=== PATIENT | female | born 1940 | race Caucasian/White ===

== ENCOUNTER 2020-04-15 13:10 | Outpatient (REF) | payer MEDICARE, SELFPAY ==
--- NOTE | ~2020-04-15 | MM_ITS ---
EXAMINATION: MM SCREENING DIGITAL BREAST TOMOSYNTHESIS, BILATERAL CLINICAL INFORMATION: Screening. Asymptomatic. The lifetime risk of breast cancer based on the Tyrer-Cuzick Model is 3%. COMPARISON: Mammography: 04/10/2019, 03/11/2018, 02/25/2017, 02/16/2016, 01/15/2015 TECHNIQUE: Digital breast tomosynthesis is performed in both the craniocaudal and mediolateral oblique views along with computer-aided detection (CAD). Synthesized 2D images are generated from the tomosynthesis. FINDINGS: There are scattered areas of fibroglandular density (ACR BI-RADS breast composition Category b). There is parenchymal asymmetry mid central upper inner left breast, more conspicuous when compared with recent studies but similar to remote mammography and likely related to shifting fibroglandular tissue. Patient will be recalled for additional imaging. The right breast is unremarkable. There is no developing density or interval mass or architectural abnormality. Neither breast shows abnormal calcifications. The axilla and skin contours are unremarkable. MM/MM tomosynthesis screening BI IMPRESSION: 1. Left: Parenchymal asymmetry central upper outer mid breast likely shifting fibroglandular tissue. 2. Right: No mammographic evidence of malignancy. ASSESSMENT: BI-RADS 0: Incomplete - Need Additional Imaging Evaluation RECOMMENDATION: 1. Additional views of the left breast (3-D rolled CC x2, 3-D ML). 2. Targeted ultrasound if warranted after review of the additional views. 3. Radiology department staff will contact the patient for additional imaging. This patient's information was entered into a reminder system with a target due date for their next mammogram.
== END 2020-04-15 13:11 | disposition home or self-care (01) ==
LOC: HO.MAMMO 13:10
PROVIDERS: PCP Internal Medicine; Visit Provider Internal Medicine
DX: Z12.31 Encounter for screening mammogram for malignant neoplasm of breast (principal)
CPT/HCPCS: 77063; 77067

== ENCOUNTER 2020-05-01 10:04 | Outpatient (REF) | payer MEDICARE, SELFPAY ==
--- NOTE | ~2020-05-01 | MM_ITS ---
EXAMINATION: MM DIAGNOSTIC DIGITAL BREAST TOMOSYNTHESIS, LEFT Targeted left breast ultrasound. CLINICAL INFORMATION: Left breast asymmetric density superiorly COMPARISON: Mammography: April 15, 2020 and studies dating back to October 11, 2008 TECHNIQUE: Digital breast tomosynthesis is performed. 2D images are generated from the tomosynthesis. The following views are obtained: Rolled craniocaudal views, 90 degree mediolateral view, and spot compression 90 degree mediolateral view. Targeted left breast ultrasound. FINDINGS: There are scattered areas of fibroglandular density (ACR BI-RADS breast composition Category b). Additional views still demonstrate some dense breast parenchyma which does not totally efface but which has the appearance of the studies dating back to October 13, 2009. No underlying spiculated mass is appreciated. Targeted ultrasound of the superior aspect of the breast did not demonstrate any abnormal cystic or solid masses. No regions of abnormal distal sound shadowing appreciated. Results are discussed with the patient at time of visit. MM/MM tomosynthesis added views L IMPRESSION: No specific mammographic or ultrasound findings to suggest malignancy of the left breast. ASSESSMENT: BI-RADS 1: Negative RECOMMENDATION: Routine annual mammography screening due in 12 months. This patient's information was entered into a reminder system with a target due date for their next mammogram.
--- NOTE | ~2020-05-01 | US_ITS ---
EXAMINATION: US DIAGNOSTIC ULTRASOUND BREAST, LEFT CLINICAL INFORMATION: Left breast asymmetry superiorly. COMPARISON: Mammography of same day as well as studies dating back to October 11, 2008. TECHNIQUE: Ultrasound of the breast is performed with real-time workman scale imaging and color Doppler. FINDINGS: Targeted ultrasound of the superior aspect of the breast did not demonstrate any abnormal cystic or solid masses. No regions of abnormal distal sound shadowing appreciated. Results are discussed with the patient at time of visit. US/US breast LT limited IMPRESSION: No specific mammographic or ultrasound findings to suggest malignancy of the left breast. ASSESSMENT: BI-RADS 1: Negative RECOMMENDATION: Routine annual mammography screening due in 12 months.
== END 2020-05-01 10:05 | disposition home or self-care (01) ==
LOC: HO.MAMMO 10:04
PROVIDERS: PCP Internal Medicine; Visit Provider Internal Medicine
DX: R92.8 Other abnormal and inconclusive findings on diagnostic imaging of breast (principal)
CPT/HCPCS: 76642; 77061; 77065

== ENCOUNTER 2021-04-17 11:26 | Outpatient (REF) | payer MEDICARE, SELFPAY ==
--- NOTE | ~2021-04-17 | MM_ITS ---
EXAMINATION: MM SCREENING DIGITAL BREAST TOMOSYNTHESIS, BILATERAL CLINICAL INFORMATION: Screening. Asymptomatic. The lifetime risk of breast cancer based on the Tyrer-Cuzick Model is 3%. COMPARISON: Mammography: 05/01/2020, 04/15/2020, 04/10/2019, 03/11/2018, 02/25/2017, targeted left breast ultrasound 05/01/2020. TECHNIQUE: Digital breast tomosynthesis is performed in both the craniocaudal and mediolateral oblique views along with computer-aided detection (CAD). Synthesized 2D images are generated from the tomosynthesis. Additional right CC view is provided. FINDINGS: There are scattered areas of fibroglandular density (ACR BI-RADS breast composition Category b). There are no significant masses, abnormal calcifications, or other abnormalities. Parenchymal pattern is similar to prior studies. There is no developing density or architectural abnormality. The axilla and skin contours are unremarkable. No significant changes. MM/MM tomosynthesis screening BI IMPRESSION: No mammographic evidence of malignancy. ASSESSMENT: BI-RADS 1: Negative RECOMMENDATION: Routine annual mammography screening. This patient's information was entered into a reminder system with a target due date for their next mammogram.
== END 2021-04-17 11:27 | disposition home or self-care (01) ==
LOC: HO.MAMMO 11:26
PROVIDERS: PCP Internal Medicine; Visit Provider Internal Medicine
DX: Z12.31 Encounter for screening mammogram for malignant neoplasm of breast (principal)
CPT/HCPCS: 77063; 77067

== ENCOUNTER 2022-04-23 11:36 | Outpatient (REF) | payer MEDICARE, SELFPAY ==
--- NOTE | ~2022-04-23 | MM_ITS ---
EXAMINATION: MM SCREENING DIGITAL BREAST TOMOSYNTHESIS, BILATERAL CLINICAL INFORMATION: Screening. Asymptomatic. The lifetime risk of breast cancer based on the Tyrer-Cuzick Model is 2%. COMPARISON: Multiple prior exams, most recent 04/17/2021. TECHNIQUE: Digital breast tomosynthesis is performed in both the craniocaudal and mediolateral oblique views along with computer-aided detection (CAD). Synthesized 2D images are generated from the tomosynthesis. FINDINGS: There are scattered areas of fibroglandular density (ACR BI-RADS breast composition Category b). There are no significant masses, abnormal calcifications, or other abnormalities. No architectural abnormality or developing density or significant change from prior studies. The axilla are unremarkable. MM/MM tomosynthesis screening BI IMPRESSION: No mammographic evidence of malignancy. ASSESSMENT: BI-RADS 1: Negative RECOMMENDATION: Routine annual mammography screening. This patient's information was entered into a reminder system with a target due date for their next mammogram.
== END 2022-04-23 11:37 | disposition home or self-care (01) ==
LOC: HO.MAMMO 11:36
PROVIDERS: PCP Internal Medicine; Visit Provider Internal Medicine
DX: Z12.31 Encounter for screening mammogram for malignant neoplasm of breast (principal)
CPT/HCPCS: 77063; 77067

== ENCOUNTER 2023-04-27 11:22 | Outpatient (REF) | payer MEDICARE, SELFPAY | END 2023-04-27 11:23 | disposition home or self-care (01) | LOC: HO.MAMMO 11:22 | PROVIDERS: PCP Internal Medicine; Visit Provider Internal Medicine | DX: Z12.31 Encounter for screening mammogram for malignant neoplasm of breast (principal) | CPT/HCPCS: 77063; 77067 ==

== ENCOUNTER → 2023-04-27 11:45 | Outpatient (BNV) | payer MEDICARE, SELFPAY | PROVIDERS: PCP Internal Medicine; Visit Provider Radiology Diagnostic Radiology | DX: Z12.31 Encounter for screening mammogram for malignant neoplasm of breast (principal) | CPT/HCPCS: 77063; 77067 ==

== ENCOUNTER 2024-05-02 10:37 | Outpatient (REF) | payer MEDICARE, SELFPAY ==
--- OUTSIDE RECORDS SUMMARY | 2024-05-02 12:37 | XMS_ITS | Patient Health Record ---
Author Organization [facility] Address [address] [place] [address] Care Team Providers Care Insurance Billing Specialist Name Role Phone Elizabeth Zuniga Unavailable [phone] Reason For Referral No Information Medications Medication SIG (Take, Route, Frequency, Duration) Notes Start Date End Date Status Pravastatin Sodium 20MG 1 ORAL daily for -3 Samuel-[facility]J 2012 Active Problems Problem Type SNOMED Code ICD Code Onset Dates Problem Status W/U Status Risk Notes Problem Hyperlipidemia (97670231) Other and unspecified hyperlipidemia (272.4) Active confirmed Major Problem Dysuria (93978586) Dysuria (788.1) Active confirmed Diag Problem Urgent desire to urinate (07516273) Urgency of urination (788.63) Active confirmed Diag Problem Gynecological examination normal (632745414383463) Routine gynecological examination (V72.31) Active confirmed Diag Plan Of Treatment No Information Insurance Providers Payer Name Payer Address Payer Phone Subscriber Number Group Number Insured Name Patient Relationship to Insured Coverage Start Date Coverage End Date [facility] [address] [place] [address] [phone] [id number] [place] Self - patient is the insured
--- OUTSIDE RECORDS SUMMARY | 2024-05-02 12:37 | XMS_ITS | Data Portability ---
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 Patient will follow up with us in 6-8 weeks in [facility] clinic, and two months after that. Patient had the opportunity had to ask questions, which were all answered to their satisfaction. 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 No strengthening until the 16 postop hans. Patient will follow up in two months. Patient had the opportunity had to ask questions, which were all answered to their satisfaction. 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 No strengthening until the 16 postop hans. Patient will follow up in 4 months. Patient had the opportunity had to ask questions, which were all answered to their satisfaction. Dr. Daily was in to reexamine and evaluate the patient agrees with the assessment and plan. Work Status: Fully disabled [email or web address] Not available 09/16/2020 17:23:56 01/20/2021 01/20/2021 Assessment: Status post right reverse total shoulder replacement on 05/22/2020 Plan: We have recommended continuation of physical therapy to work on active range of motion. No strengthening until the 16 postop hans. Patient will follow up in 4 months. Patient had the opportunity had to ask questions, which were all answered to their satisfaction. Dr. Daily was in to reexamine and evaluate the patient agrees with the assessment and plan. 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 She can now progress into activities as tolerated we will see her back on an as-needed basis. Patient had the opportunity had to ask questions, which were all answered to their satisfaction. Dr. Daily was in to reexamine and evaluate the patient agrees with the assessment and plan. Work Status: Fully disabled Not available 05/19/2021 14:44:14 Plan of Treatment Reminders Order Date Submit Date Provider Last Modified By Organization Details Last Modified Time Details Appointments None recorded. Lab None recorded. Referral physical therapist referral - This patient is status post a reverse total shoulder replacement is doing quite well. Do physical therapy 1 to 2 times a week at max for 4 weeks to help with deltoid strengtheni ng. Avoid aggressive strengtheni ng avoid Thera-Bands to risk stress fracture of her scapula. 2020 021 [email or web address] [facility], [address], [address], [place], [address], 12:28:11 Physical and Occupationa l Therapy Referral - Reversed Total shoulder replacement protocol: Sling x 4 at home, 6 weeks in public, passive range of motion weeks to two through six flexion to 90, scaption 60, external rotation to 30, no internal rotation or extension. Active range of motion weeks 4 through 12.Email [email or web address] for shoulder protocols 2020 021 apender [facility], [address], [place], [address], 09:54:21 Physical and Occupationa l Therapy Referral - Reversed Total shoulder replacement protocol: Sling x 4 at home, 6 weeks in public, passive range of motion weeks to two through six flexion to 90, scaption 60, external rotation to 30, no internal rotation or extension. Active range of motion weeks 4 through 12.Email [email or web address] for shoulder protocols 2020 021 apender [facility], [address] [place] [address], [place], [address], 09:54:11 Procedures None recorded. Surgeries None recorded. Imaging None recorded. Medication Orders meloxicam 7.5 mg tablet 2020 [id number], [address], [place], [address], 12:15:11 Patient TargetsNo targets recorded. Patient InstructionsNo instructions recorded. Reason for Referral Reversed Total shoulder repl acement protocol: Sling x 4 at home, 6 weeks in public, passive range of motion weeks to two through six flexion to 90, scaption 60, external rotation to 30, no internal rotation or extension. Active range of motion weeks 4 through 12.Email [email or web address] for shoulder protocols Referring Physician: Wing Daily, Orthopedic Surgery, Encounter Date: 06/04/2020 Reversed Total shoulder repl acement protocol: Sling x 4 at home, 6 weeks in public, passive range of motion weeks to two through six flexion to 90, scaption 60, external rotation to 30, no internal rotation or extension. Active range of motion weeks 4 through 12.Email [email or web address] for shoulder protocols Referring Physician: Wing Daily, Orthopedic Surgery, Encounter Date: 07/16/2020 Physical Therapist Referral for Degenerative joint disease of shoulder region This patient is status post a reverse total shoulder replacement is doing quite well. Do physical therapy 1 to 2 times a week at max for 4 weeks to help with deltoid strengthening. Avoid aggressive strengthening avoid Thera-Bands to risk stress fracture of her scapula. Referring Physician: Wing Daily, Orthopedic Surgery, Encounter Date: 01/20/2021 Results Created Date Observation Date Name Description Value Unit Range Abnormal Flag Note LastModifiedBy Organization Detail LastModifiedTime 05/22/19 21 05/21/2020 PT/IN R PT 12.1 s 12.2-1 4.2 low Not Available [facility] [address] [place], [address], 05/21/2020 11:28:17 05/22/19 21 05/21/2020 PT/IN R INR 0.9 0.9-1. 1 Lab Direc tor: CHEPE WHITE Not Available [facility] [address] [place], [address], 05/21/2020 11:28:17 05/22/19 21 05/21/2020 CBC WBC 5.05 K/uL 4.00-1 1.00 Not Available [facility] [address] [place], [address], 05/21/2020 11:32:50 05/22/19 21 05/21/2020 CBC RBC 4.18 M/uL 4.00-5 .20 Not Available [facility] [address] [place], [address], 05/21/2020 11:32:50 05/22/19 21 05/21/2020 CBC hemoglobin 12.9 g/dL 12.0-1 5.0 Not Available [facility] [address] [place], [address], 05/21/2020 11:32:50 05/22/19 21 05/21/2020 CBC hematocrit 39.9 % 36.0-4 5.0 Not Available [facility] [address] [place], [address], 05/21/2020 11:32:50 05/22/19 21 05/21/2020 CBC MCH 30.9 pg 25.0-3 5.0 Not Available [facility] [address] [place], [address], 05/21/2020 11:32:50 05/22/19 21 05/21/2020 CBC MCHC 32.3 g/dL 33.0-3 6.0 low Not Available [facility] [address] [place], [address], 05/21/2020 11:32:50 05/22/19 21 05/21/2020 CBC MCV 96 fL 82-98 Not Available [facility] [address] [place], [address], 05/21/2020 11:32:50 05/22/19 21 05/21/2020 CBC RDW 12.6 % 11.5-1 4.5 Not Available [facility] [address] [place], [address], 05/21/2020 11:32:50 05/22/19 21 05/21/2020 CBC platelet count 277 K/uL 150-45 0 Not Available [facility] [address] [place], [address], 05/21/2020 11:32:50 05/22/19 21 05/21/2020 CBC mean platelet volume 10.5 fL 6.0-14 .0 Lab Direc tor: CHEPE WHITE Not Available [facility] [address] [place], [address], 05/21/2020 11:32:50 05/22/19 21 05/21/2020 CMP, serum or plasm a sodium 141 mmol/ L 135-14 6 Not Available [facility] [address] [place], [address], 05/21/2020 12:05:05 05/22/19 21 05/21/2020 CMP, serum or plasm a potassium 4.0 mmol/ L 3.4-5. 2 Not Available [facility] [address] [place], [address], 05/21/2020 12:05:05 05/22/19 21 05/21/2020 CMP, serum or plasm a chloride 105 mmol/ L 98-110 Not Available [facility] [address] [place], [address], 05/21/2020 12:05:05 05/22/19 21 05/21/2020 CMP, serum or plasm a total CO2 26 mmol/ L 24-32 Not Available [facility] [address] [place], [address], 05/21/2020 12:05:05 05/22/19 21 05/21/2020 CMP, serum or plasm a anion gap 10 mmol/ L 2-15 Not Available [facility] [address] [place], [address], 05/21/2020 12:05:05 05/22/19 21 05/21/2020 CMP, serum or plasm a BUN 17 mg/dL 7-24 Not Available [facility] [address] [place], [address], 05/21/2020 12:05:05 05/22/19 21 05/21/2020 CMP, serum or plasm a creatinine 0.8 mg/dL 0.5-1. 1 Not Available [facility] [address] [place], [address], 05/21/2020 12:05:05 05/22/19 21 05/21/2020 CMP, serum or plasm a glucose 94 mg/dL 70-118 Not Available [facility] [address] [place], [address], 05/21/2020 12:05:05 05/22/19 21 05/21/2020 CMP, serum or plasm a calcium 9.0 mg/dL 8.5-10 .5 Not Available [facility] [address] [place], [address], 05/21/2020 12:05:05 05/22/19 21 05/21/2020 CMP, serum or plasm a total protein 7.7 g/dL 6.0-8. 2 Not Available [facility] [address] [place], [address], 05/21/2020 12:05:05 05/22/19 21 05/21/2020 CMP, serum or plasm a albumin, blood 4.2 g/dL 3.4-5. 2 Not Available [facility] [address] [place], [address], 05/21/2020 12:05:05 05/22/19 21 05/21/2020 CMP, serum or plasm a globulin 3.5 g/dL 2.0-4. 0 Not Available [facility] [address] [place], [address], 05/21/2020 12:05:05 05/22/19 21 05/21/2020 CMP, serum or plasm a AST (SGOT) 24 IU/L 11-40 Not Available [facility] [address] [place], [address], 05/21/2020 12:05:05 05/22/19 21 05/21/2020 CMP, serum or plasm a ALT (SGPT) 19 IU/L 4-35 Not Available [facility] [address] [place], [address], 05/21/2020 12:05:05 05/22/19 21 05/21/2020 CMP, serum or plasm a alk phosphatase 120 IU/L 30-115 high Not Available [facility] [address] [place], [address], 05/21/2020 12:05:05 05/22/19 21 05/21/2020 CMP, serum or plasm a total bilirubin 0.4 mg/dL 0.0-1. 2 Not Available [facility] [address] [place], [address], 05/21/2020 12:05:05 05/22/19 21 05/21/2020 CMP, serum or plasm a estimated GFR (CKD-epi) 71 mL/mi n/bsa >=60 This Cr-ba sed equat ion under estim ates GFR in patie nts with incre ased muscl e mass. Order CYSTA TIN C WITH GFR ESTIM ATE, LAB45 59, if addit ional evalu ation of renal funct ion is neede d. Lab Direc tor: CHEPE WHITE Not Available [facility] [address] [place], [address], 05/21/2020 12:05:05 05/22/19 21 05/21/2020 HbA1c (hemo globi n A1c), blood hemoglobin A1C 5.4 % 4.6-5. 6 Not Available [facility] [address] [place], [address], 05/21/2020 13:22:23 05/22/19 21 05/21/2020 HbA1c (hemo globi n A1c), blood estimated average glucose 108 mg/dL Lab Direc tor: CHEPE WHITE Not Available [facility] [address] [place], [address], 05/21/2020 13:22:23 05/22/19 21 05/21/2020 SARS CoV 2 RNA (COVI D-19) , QL, account services representative-P CR, respi rator y speci men coronavirus sars-cov-2 Not Detect ed not detect ed A Not Detec dylon (nega tive) test resul t means that SARS- CoV-2 RNA was not prese nt in the speci men above the limit of detec tion. A negat luís resul t does not rule out the possi bilit y of COVID -19 infec tion and shoul d not be used as the sole basis for treat ment or patie nt manag ement decis ions. If COVID -19 is still suspe cted, based on expos ure histo ry toget her with other clini carroll findi ngs, re-te sting shoul d be consi dered . Test perfo rmed using the Therm o Fishe r Scien tific TaqPa th COVID -19 Combo Ampli tude high throu ghput real- time RT-PC R assay . The test has been valid ated and FDA's indep enden t revie w of this valid ation is pendi ng. Pleas e refer to Chapt er 1 of the Produ ct Instr uctio ns for Use (IFU) , MAN00 . The assay 's perfo rmanc e ben cteri stics have been verif ied by the [facility]. The labor atory is certi fied under the Clini carroll Labor atory Impro vemen t Amend ments of 1987 (CLIA ), 42 U.S.C . A?263 a to perfo rm high compl exity testi ng. Labor atory test resul ts shoul d alway s be consi dered in the martha xt of clini carroll obser vatio ns and epide miolo gical data in ruth leger a final diagn osis and patie nt manag ement decis ions. Not Available [facility] [address] [place], [address], 05/21/2020 21:41:12 05/22/19 21 05/21/2020 methi cilli n resis tant staph yloco ccus aureu s, cultu re, nasal MRSA culture No MRSA isolat ed Lab Direc tor: LESLIE BANEGAS Not Available [facility] [address] [place], [address], 05/23/2020 12:58:04 05/25/19 21 05/24/2020 CBC WBC 10.05 K/uL 4.00-1 1.00 Not Available [facility] [address] [place], [address], 05/24/2020 04:04:59 05/25/19 21 05/24/2020 CBC RBC 3.75 M/uL 4.00-5 .20 low Not Available [facility] [address] [place], [address], 05/24/2020 04:04:59 05/25/19 21 05/24/2020 CBC hemoglobin 11.5 g/dL 12.0-1 5.0 low Not Available [facility] [address] [place], [address], 05/24/2020 04:04:59 05/25/19 21 05/24/2020 CBC hematocrit 36.0 % 36.0-4 5.0 Not Available [facility] [address] [place], [address], 05/24/2020 04:04:59 05/25/19 21 05/24/2020 CBC MCH 30.7 pg 25.0-3 5.0 Not Available [facility] [address] [place], [address], 05/24/2020 04:04:59 05/25/19 21 05/24/2020 CBC MCHC 31.9 g/dL 33.0-3 6.0 low Not Available [facility] [address] [place], [address], 05/24/2020 04:04:59 05/25/19 21 05/24/2020 CBC MCV 96 fL 82-98 Not Available [facility] [address] [place], [address], 05/24/2020 04:04:59 05/25/19 21 05/24/2020 CBC RDW 12.7 % 11.5-1 4.5 Not Available [facility] [address] [place], [address], 05/24/2020 04:04:59 05/25/19 21 05/24/2020 CBC platelet count 249 K/uL 150-45 0 Not Available [facility] [address] [place], [address], 05/24/2020 04:04:59 05/25/19 21 05/24/2020 CBC mean platelet volume 11.4 fL 6.0-14 .0 Lab Direc tor: CHEPE WHITE Not Available [facility] [address] [place], [address], 05/24/2020 04:04:59 05/25/19 21 05/24/2020 BMP, serum or plasm a sodium 141 mmol/ L 135-14 6 Not Available [facility] [address] [place], [address], 05/24/2020 04:54:00 05/25/19 21 05/24/2020 BMP, serum or plasm a potassium 4.2 mmol/ L 3.4-5. 2 Not Available [facility] [address] [place], [address], 05/24/2020 04:54:00 05/25/19 21 05/24/2020 BMP, serum or plasm a chloride 109 mmol/ L 98-110 Not Available [facility] [address] [place], [address], 05/24/2020 04:54:00 05/25/19 21 05/24/2020 BMP, serum or plasm a total CO2 23 mmol/ L 24-32 low Not Available [facility] [address] [place], [address], 05/24/2020 04:54:00 05/25/19 21 05/24/2020 BMP, serum or plasm a anion gap 9 mmol/ L 2-15 Not Available [facility] [address] [place], [address], 05/24/2020 04:54:00 05/25/19 21 05/24/2020 BMP, serum or plasm a BUN 11 mg/dL 7-24 Not Available [facility] [address] [place], [address], 05/24/2020 04:54:00 05/25/19 21 05/24/2020 BMP, serum or plasm a creatinine 0.7 mg/dL 0.5-1. 1 Not Available [facility] [address] [facility] [place], [address], 05/24/2020 04:54:00 05/25/19 21 05/24/2020 BMP, serum or plasm a glucose 125 mg/dL 70-118 high Not Available [facility] [address] [place], [address], 05/24/2020 04:54:00 05/25/19 21 05/24/2020 BMP, serum or plasm a calcium 8.6 mg/dL 8.5-10 .5 Not Available [facility] [address] [place], [address], 05/24/2020 04:54:00 05/25/19 21 05/24/2020 BMP, serum or plasm a estimated GFR (CKD-epi) 84 mL/mi n/bsa >=60 This Cr-ba sed equat ion under estim ates GFR in patie nts with incre ased muscl e mass. Order CYSTA TIN C WITH GFR ESTIM ATE, LAB45 59, if addit ional evalu ation of renal funct ion is neede d. Lab Direc tor: CHEPE WHITE Not Available [facility] [address] [place], [address], 05/24/2020 04:54:00 05/31/19 21 05/23/2020 or surgi carroll image stora ge This is a non-re portab le study used for image storag e. It has been automa ticall y finali zed and does not contai n a result . REPORT SIGNED BY: Unsign ed If video or image from laparo scopic or arthro scopic equipm ent is taken, [email or web address] [address] [place], [address], 05/30/2020 14:59:15 06/05/19 21 06/04/2020 x-ray Should er INTERFACE [facility] [address] [place], [address], 06/04/2020 11:31:27 07/17/19 21 07/16/2020 x-ray Should er INTERFACE [facility] [address] [facility] [place], [address], 07/16/2020 11:42:19 09/17/19 21 09/16/2020 x-ray Should er INTERFACE [facility] [address] [facility] [place], [address], 09/16/2020 15:47:05 01/21/20 21 01/20/2021 x-ray Should er INTERFACE [facility] [address] [facility] [place], [address], 01/20/2021 15:07:47 05/20/19 22 05/19/2021 x-ray Should er INTERFACE [facility] [address] [facility] [place], [address], 05/19/2021 13:55:29 Result Notes None recorded. Problems Name Problem SNOMED Code Status Onset Date Resolution Date Notes Provider Name and Address Organization Details Recorded Time Degenerative joint disease of shoulder region 80359023 Active 2020 Jeffery Vargas [address] [place], [address], [facility] 15:11:34 Problem Notes None recorded. Procedures Surgical History Date Name Laterality Status Provider Name and Address Organization Details Recorded Time 022 [facility] Xray Shoulder (3) completed Steve Pascual Pac [address] [place], [address], [facility] 05/19/2021 13:58:54 021 SMN Xray Shoulder (3) completed Wing Daily MD [address] [place], [address], [facility] 01/20/2021 15:12:58 021 SMN Xray Shoulder (3) completed Steve Pascual Pac [address], [place], [address], [facility] 09/16/2020 17:23:15 021 SMN Xray Shoulder (2) completed Jeffery Sousa Pac [address], [place], [address], [facility] 07/16/2020 15:11:05 021 SMN Xray Shoulder (2) completed Wing Daily MD [address] [facility], [place], [address], [facility] 06/04/2020 12:13:04 021 Test Interpretation completed Felicita Pitt Pac [address] [facility], [place], [address], [facility] 05/08/2020 09:25:06 020 Test Interpretation completed Steve Pascual [facility] [address] [place], [address], [facility] 12/13/2019 16:49:15 Imaging Results Imaging Date Name Status LastModified by [facility] Details LastModified Time 05/23/2020 or surgical image storage completed [email or web address] [facility] (Radiology) [address] [place] [address], [address], 05/30/2020 14:59:15 06/04/2020 x-ray completed INTERFACE [facility] [address] [facility], [place], [address], 06/04/2020 11:31:27 07/16/2020 x-ray completed INTERFACE [facility] [address] [facility], [place], [address], 07/16/2020 11:42:19 09/16/2020 x-ray completed INTERFACE [facility] [address] [facility], [place], [address], 09/16/2020 15:47:05 01/20/2021 x-ray completed INTERFACE [facility] [address] [place], [address], 01/20/2021 15:07:47 05/19/2021 x-ray completed INTERFACE [facility] [address] [place], [address], 05/19/2021 13:55:29 Procedure Notes None recorded. Medical Equipment None Reported. Allergies No known drug allergies Medications Name Sig Start Date Stop Date Status Note LastModified by Organization Details LastModified Time celecoxib 200 mg capsule Take 1 capsule(s) p.o. b.i.d. to start after surgery active Not Available Not Available No t Available amoxicillin 500 mg capsule Four capsules p.o. 1 hour before prior to dental cleaning active Not Available Not Available No t Available ondansetron HCl 4 mg tablet One tab p.o. q.6 hours p.r.n. nausea after surgery active Not Available Not Available No t Available tramadol 50 mg tablet active Not Available Not Available No t Available Cholestyrami ne Light 4 gram powder for susp in a packet active Not Available Not Available Not Available meloxicam 7.5 mg tablet Take 1 tablet(s) BID by oral route with food 2020 active Not Available Not Available Not Avai lable mupirocin 2 % topical ointment APPLY TO EACH NOSTRIL BID X 5 DAY active Not Available Not Available No t Available ibuprofen 600 mg tablet active Not Available Not Available Not Available estradiol 0.01% (0.1 mg/gram) vaginal cream active Not Available Not Available Not Available metronidazol e 0.75 % topical gel active Not Available Not Available Not Available oxycodone 5 mg tablet active Not Available Not Available No t Available rosuvastatin 5 mg tablet active Not Available Not Available Not Available bromfenac 0.09 % eye drops active Not Available Not Available Not Available diclofenac 1 % topical gel APPLY TOPICALLY TO THE AFFECTED AREA FOUR TIMES DAILY APPLY 1 GRAM PER APPLICATIN active Not Available Not Available N ot Available Shingrix (PF) 50 mcg/0.5 mL intramuscula r suspension, kit ADM 0.5ML IM UTD active Not Available Not Available No t Available Fluzone High-Dose Quad 2020- (PF) 240 mcg/0.7 mL IM syringe ADM 0.7ML IM UTD active Not Available Not Available No t Available Vitals None Recorded Social History Question Answer Notes LastModified by Organizat ion Details LastModified Time Tobacco Smoking Status Never Smoker Cindy 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 No Information not available 05/21/2021 Have You Had X-rays/imaging For Today's Condition? Yes Information not available 05/21/2021 Have You Had A Bone Density Screening? Yes Information not available 05/21/2021 Work Related Injury? No Information not available 05/21/2021 Have You Fallen In The Past Year? No Information no t available 05/21/2021 What Is Your Relationship Status? Information not available 05/21/2021 Do You Use Any Illicit Or Recreational Drugs? No Information not available 05/21/2021 Sex: Unknown Functional Status None recorded. Mental Status None recorded. Family History Relationship Description Onset Age of this Age Resolved Age Notes LastModified by Organization Details LastModified Time Father No current problems or disability [email or web address] Not available 11:03:23 Mother No current problems or disability [email or web address] Not available 11:03:23 Unspecified Relation Osteoporosis Not availabl e 05/21/2021 09:36:29 Unspecified Relation Family history of malignant neoplasm Not available 09:36:44 Medical History Condition Response Diabetes N Gout N Anxiety/Depression N Bleeding Disorder N Arthritis Y MRSA N Blood Clot N AIDS/HIV N Tuberculosis N Cancer N Stroke N Thyroid Problems N COPD N Asthma N Anemia N High Cholesterol Y Hepatitis N Heart Attack (TN) N Rheumatoid Arthritis N Pulmonary Embolism N Hypertension N Osteoporosis Y Kidney Disease N Gynecological HistoryNo gynecological history recorded. Obstetrics History GPAL:G 0 P 0 0 0 0 Past Encounters Encounter ID Performer Location Encounter Start Date Encounter Closed Date Diagnosis/Indication Diagnosis SNOMED-CT Code Diagnosis ICD10 Code Diagnosis Note [id number] Wing Daily MD [place] [address] [place] [address] 12/12/2019 13:40:17 12/12/2019 15:06:11 Shoulder pain 21021622 M25.519 Pain of ri ght shoulder joint [id number] M25.511 [id number] Tere Bradley Pac [facility] [address] [place] [address] 01/28/2020 06:56:55 01/30/2020 08:59:26 Idiopathic osteoarthritis [id number] M19.91 [id number] Felicita Pitt Pac [facility] [address] [place] [address] 05/08/2020 06:45:22 05/09/2020 10:49:01 Pain of right shoulder joint [id number] M25.511 [id number] Wing Daily MD [facility] [place] [address] [place] [address] 06/04/2020 11:18:29 06/05/2020 12:31:19 Degenerative joint disease of shoulder region [id number] M19.019 [id number] Wing Daily MD [facility] [place] [address] [place] [address] 07/16/2020 11:18:07 07/17/2020 11:24:56 Degenerative joint disease of shoulder region [id number] M19.019 [id number] Wing Daily MD [facility] [place] [address] [place] [address] 09/16/2020 15:36:42 09/16/2020 16:23:19 Degenerative joint disease of shoulder region [id number] M19.019 [id number] Wing Daily MD [facility] [place] [address] [place] [address] 01/20/2021 14:53:41 01/20/2021 15:26:30 Degenerative joint disease of shoulder region [id number] M19.019 [id number] Wing Daily MD [facility] [place] [address] [place] [address] 05/19/2021 13:40:46 05/19/2021 15:14:51 Degenerative joint disease of shoulder region [id number] M19.019 Health Concerns Section Related Observation LastModified by Organization Detai ls LastModified Time None Recorded Concern Status LastModified by Organization Details LastModified Time None Recorded Advance Directives Directive None Recorded Payers Encounter Date Sequence Insurance Name Policy Number Policy Johansen Covered Member ID Johansen Member ID Guarantor Name 06/04/2020 1 [facility]: MEDICARE PPO BLUE (MEDICARE REPLACEMENT PPO) [id number] Amelia I Regish [id number] [place] Reg[place] 07/16/2020 1 [facility]: MEDICARE PPO BLUE (MEDICARE REPLACEMENT PPO) [id number] Amelia I Regish [id number] Amelia Regish 09/16/2020 1 [facility]: MEDICARE PPO BLUE (MEDICARE REPLACEMENT PPO) [id number] [place] I Regish [id number] [place] Regish 01/20/2021 1 [facility]: MEDICARE PPO BLUE (MEDICARE REPLACEMENT PPO) [id number] Amelia I Regish [id number] Amelia Regish 05/19/2021 1 [facility]: MEDICARE PPO BLUE (MEDICARE REPLACEMENT PPO) [id number] Amelia I Regish [id number] Amelia Regish Notes Date Note Type Note Provider Name and Address Organization Details Recorded Time 06/04/2020 text/html Diagnosis: {{Right* Left}} shoulder {{osteoarthritis ro tator cuff arthropathy*}} Previous surgeries: {{Right* Left}} shoulder {{total shoulder replacement reverse total shoulder replacement*}} on {{05/22/2020# }} History of Present Illness: Patient presents today for the surgical followup from their shoulder replacement. Patient has been doing well with pain management. Denies fevers or chills. Denies numbness or tingling. Denies any calf pain. There has been no anesthesia or medical problems in the postoperative period. Wing Daily MD [address] [place], [address], [facility] [place] 06/04/2020 12:15:49 07/16/2020 text/html Diagnosis: {{Right* Left}} shoulder {{osteoarthritis ro tator cuff arthropathy*}} Previous surgeries: {{Right* Left}} shoulder {{total shoulder replacement reverse total shoulder replacement*}} on {{05/22/2020# }} History of Present Illness: Patient presents today for the surgical followup from their shoulder replacement. Patient has been doing well with pain management. Denies fevers or chills. Denies numbness or tingling. Denies any calf pain. There has been no anesthesia or medical problems in the postoperative period. Diagnosis: {{Right Left}} shoulder {{osteoarthritis ro tator cuff arthropathy}} Previous surgeries: {{Right Left}} shoulder {{total shoulder replacement reverse total shoulder replacement}} on {{}} History of Present Illness: Patient presents today just around eight weeks postop from their above-mentioned shoulder replacement. Patient has been doing physical therapy and making advancements with range of motion. They have not started strengthening. Denies fevers or chills. Denies numbness or tingling. Denies any calf pain. Diagnosis: {{Right* Left}} shoulder {{osteoarthritis ro tator cuff arthropathy*}} Previous surgeries: {{Right* Left}} shoulder {{total shoulder replacement reverse total shoulder replacement*}} on {{05/22/2020# }} History of Present Illness:Patient presents today just around eight weeks postop from their above-mentioned shoulder replacement. Patient has been doing physical therapy and making advancements with range of motion. They have not started strengthening. Denies fevers or chills. Denies numbness or tingling. Denies any calf pain. Jeffery Sousa [facility] [place], [address], [facility] [place] 07/16/2020 15:12:07 09/16/2020 text/html Diagnosis: {{Right* Left}} shoulder {{osteoarthritis ro tator cuff arthropathy*}} Previous surgeries: {{Right* Left}} shoulder {{total shoulder replacement reverse total shoulder replacement*}} on {{05/22/2020# }} History of Present Illness: Patient presents today just around four months postop from their above-mentioned shoulder replacement. Patient has transitioned from physical therapy to a home exercise program. Pain, strength and range of motion of all improved. Denies fevers or chills. Denies numbness or tingling. Denies any calf pain. Her main complaint is some weakness in the upper extremity. She has finished physical therapy Steve Vargas [address] [place], [address], [facility] 09/16/2020 17:24:26 01/20/2021 text/html Diagnosis: {{Right* Left}} shoulder {{osteoarthritis ro tator cuff arthropathy*}} Previous surgeries: {{Right* Left}} shoulder {{total shoulder replacement reverse total shoulder replacement*}} on {{05/22/2020# }} History of Present Illness: Patient presents today just around four months postop from their above-mentioned shoulder replacement. Patient has transitioned from physical therapy to a home exercise program. Pain, strength and range of motion of all improved. Denies fevers or chills. Denies numbness or tingling. Denies any calf pain. Her main complaint is some weakness in the upper extremity. She has finished physical therapy Wign Daily MD [address] [place], [address], [facility] 01/20/2021 15:23:33 05/19/2021 text/html Diagnosis: {{Right* Left}} shoulder {{osteoarthritis ro tator cuff arthropathy*}} Previous surgeries: {{Right* Left}} shoulder {{total shoulder replacement reverse total shoulder replacement*}} on {{05/22/2020# }} History of Present Illness: Patient presents today just around 12 months postop from their above-mentioned shoulder replacement. Patient has transitioned from physical therapy to a home exercise program. Pain, strength and range of motion of all improved. Denies fevers or chills. Denies numbness or tingling. Denies any calf pain. Her main complaint is some weakness in the upper extremity. She has finished physical therapy Steve Pascual [facility] [address] [place], [address], [facility] 05/19/2021 14:44:40 OBGyn Episode No OBEpisode recorded.
--- OUTSIDE RECORDS SUMMARY | 2024-05-02 12:38 | XMS_ITS | Clinical Summary ---
Author Organization [facility] Address [address] [place] [address] Care Team Providers Care Professor Of Surgery Name Role Phone Tameka Lowery MD Primary Care Provider Unavailabl e Allergies No known active allergies Medications Medication Sig Dispensed Refills Start Date End Date Status cholestyramine light (PREVALITE) 4 g packet Take 4 g by mouth. 0 04/06/2019 Active cholestyramine light 4 g packet 0 10/02/2019 Active Misc Natural Products (GLUCOSAMINE CHOND COMPLEX/MSM) TABS Take by mouth. 0 Act luís Multiple Vitamins-Minerals (CENTRUM SILVER ADULT 50+) TABS Take by mouth. 0 Active Active Problems No known active problems Family History Medical History Relation Name Comments Heart disease Mother Cancer Sister Relation Name Status Comments Mother Sister Social History Tobacco Use Types Packs/Day Years Used Date Smoking Tobacco: Never Smokeless Tobacco: Never Alcohol Use Standard Drinks/Week Comments Yes 0 (1 standard drink = 0.6 oz pur e alcohol) Sex and Gender Information Value Date Recorded Sex Assigned at Not on file Gender Identity Not on file Sexual Orientation Not on file Last Filed Vital Signs Vital Sign Reading Time Taken Comments Blood Pressure - - Pulse - - Temperature - - Respiratory Rate - - Oxygen Saturation - - Inhaled Oxygen Concentration - - Weight 70.8 kg (156 lb) 11/19/2019 12:59 PM EDT Height 165.1 cm (5' 5 ) 11/19/2019 12:59 PM EDT Body Mass Index 25.96 11/19/2019 12:59 PM EDT Plan of Treatment Health Maintenance Due Date Last Done Comments COVID-19 Vaccine (#1) 03/05/1941 Depression Screening 1954 Preventative Health Evaluation 1960 Fall Risk Assessment 09/03/2007 Osteoporosis Screening (DEXA Scan) 09/03/2007 RSV Adult > 60+ Yrs or (1 - 1-dose 75+ series) 2017 Shingrix-Zoster Vaccine (2 of 2) 06/03/2019 04/08/2019 Influenza Vaccine (#1) 2023 9, 11/13/2017, 11/16/2016, Additional history exists DTap / Tdap / Td (2 - Td or Tdap) 11/06/2023 11/05/2013 Pneumococcal Vaccine Completed 04/22/2014, 09/26/19 08 Hepatitis B Vaccines Aged Out No long er eligible based on patient's age to complete this topic RSV Ped < 20 months Aged Out No longe r eligible based on patient's age to complete this topic Care Teams Professor Of Surgery Relationship Specialty Start Date End Date Tameka Lowery MD PCP - General Internal Medicine 11/19/19
--- OUTSIDE RECORDS SUMMARY | 2024-05-02 12:38 | XMS_ITS | Clinical Summary ---
Author Organization [facility] Address [address] [place] [address] Care Team Providers Care Slot Shift Supervisor Name Role Phone Tameka Lowery MD Primary Care Provider Unavailab le Surgical History Surgery Date Site/Laterality Comments COLONOSCOPY 1998,01/05 PROCEDURE: HISTORICAL COLONOSCOPY; COMMENT: Nissa, neg, neg Dr Cruz, repeat 10 yr ROTATOR CUFF REPAIR 06/29/2010 PROCEDURE: HISTORICAL ROTATOR CUFF REPAIR; COMMENT: right OTHER SURGICAL HISTORY 07/04/2013 PROCEDURE: HISTORICAL D&C; COMMENT: bx hyperplastic OTHER SURGICAL HISTORY 10/2019 PROCEDURE: HISTORY OTHER; COMMENT: anterior cystocoel repair SHOULDER SURGERY 05/22/2020 Right PROCEDURE: HISTORICAL SHOULDER SURGERY; COMMENT: reverse total shoulder replacement Medical History Medical History Date Comments Hypercholesteremia 08/29/2007 DX:Hyperchole steremia Osteoarthritis of hip 05/03/2013 DX:Osteoar thritis of hip History of total shoulder re placement, right 09/29/2020 DX:History of total shoulder replacement, right; COMMENT: Reverse total shoulder replacement 05/22/2020 Family History Medical History Relation Name Comments Breast cancer Aunt Arthritis Daughter 1 THR Colon cancer Sister 1 Arthritis Sister 2 THR Relation Name Status Comments Aunt Daughter 1 Daughter 2 Pina Alive Father CABG Mother (Age 88) Dementia Sister 1 Sister 2 Sister 3 Alive hyperchol Sister 4 Alive Sister 5 (Age 49) Colon Canc er Son Didier Alive Social History Tobacco Use Types Packs/Day Years Used Date Smoking Tobacco: Never Smokeless Tobacco: Never Alcohol Use Standard Drinks/Week Comments Yes 0 (1 standard drink = 0.6 oz pur e alcohol) Comments Unknown Sex and Gender Information Value Date Recorded Sex Assigned at Not on file Legal Sex Female 4:10 AM EST Gender Identity Not on file Sexual Orientation Not on file Obstetrics History Plan of Treatment Health Maintenance Due Date Last Done Comments RSV Immunization Patients 60+ Years Old (1 - 1-dose 75+ series) 2017 COVID-19 Vaccine (1 - 2023- season) 2023 Influenza Vaccine (#1) 2023 0, 11/11/2018, 11/13/2017, Additional history exists DTaP,Tdap,and Td Vaccines (3 - Td or Tdap) 11/06/2023 11/05/2013, 10/17/2009 Cholesterol Screening (Lipid Panel) 01/23/2024 Depression Screening 01/23/2024 Falls Risk Assessment 01/23/2024 Social Influencers of Health Screening 01/23/2024 Osteoporosis Screening (Bone Density Screening) 05/14/2030 05/14/2020, 05/17/2016 Pneumococcal Vaccine: 50+ Years Completed 04/22/2014, 09/26/2007 Zoster Vaccines Completed 11/06/2019, 10/2019, 07/23/2011 HIB Vaccines Aged Out No longer eligi ble based on patient's age to complete this topic HPV Vaccines Aged Out No longer eligi ble based on patient's age to complete this topic Hepatitis A Vaccines Aged Out No long er eligible based on patient's age to complete this topic Hepatitis B Vaccines Aged Out No long er eligible based on patient's age to complete this topic IPV Vaccines Aged Out No longer eligi ble based on patient's age to complete this topic MMR Vaccines Aged Out No longer eligi ble based on patient's age to complete this topic Meningococcal ACWY Vaccine Aged Out N o longer eligible based on patient's age to complete this topic Meningococcal B Vacine Aged Out No lo nger eligible based on patient's age to complete this topic RSV Immunization Patients Under 20 months Aged Out No longer eligible based on patient's age to complete this topic Varicella Vaccines Aged Out No longer eligible based on patient's age to complete this topic Procedures Procedure Name Priority Date/Time Associated Diagnosis Comments DXA BONE DENSITY STUDY 1+ SITS AXIAL SKEL Routine 05/14/2020 9:44 AM EDT Other specified disorders of bone density and structure, multiple sites from Last 3 Months or Most Recently Relevant to Health Maintenance Results * DXA BONE DENSITY STUDY 1+ JANNETTE CUMMINGS (05/14/2020 9:44 AM EDT) Anatomical Region Laterality Modality Bone Densitometr y 12/19/2019 12:1 5 PM EDT Narrative 05/14/2020 5:27 PM EDT Clinical history: disorder of bone or cartilage Scans of the lumbar spine and hips were performed on a [email or web address] fan beam bone densitometer. ? Bone mineral density measurements and associated T and Z scores respectively are as follows: Lumbar Spine: L1-L4 BMD: 0.870 g/cm2 ? T-Score: -1.6 ? Z-Score: 0.9 Left Proximal Femur: Neck BMD: 0.666 g/cm2 ? T-Score: -1.6 ?? Z-Score: 0.6 Total BMD: 0.866 g/cm2 ? T-Score: -0.6 ?Z-Score: 1.3 Compared with standards for the young adult, lowest measured bone density places the patient in the W.H.O. osteopenic range. FRAX 10 year probability of major osteoporotic fracture: 13% FRAX 10 year probability of hip fracture: 3% IMPRESSION: IMPRESSION: Osteopenia. The NOF guidelines recommend that FDA approved medical therapies be considered in postmenopausal women and men age >50 years with a: i. Hip or vertebral (clinical or morphometric) fracture ii. T score of < -2.5 at the spine or hip iii. 10 year fracture probability by FRAX of >3% for hip fracture, or >20% for major osteoporotic fracture PLEASE NOTE: ?? W.H.O. classification is based on lowest measured density at the spine, femoral neck, or total hip.This classification has prognostic significance when applied to post menopausal women and older men. 1) ??The World Health Organization defines low BMD as follows: ?T-score ? Normal ? at or > -1 Osteopenia ? < -1 and ??> - 2.5 Osteoporosis ? at or < -2.5 without fractures Established osteoporosis ? < -2.5 with fractures Procedure Note Donte Sen MD - 02/16/2022 Clinical history: disorder of bone or cartilage Scans of the lumbar spine and hips were performed on a [employer] beam bone densitometer. Bone mineral density measurements and associated T and Z scoresrespectively are as follows: Lumbar Spine: L1-L4 BMD: 0.870 g/cm2 T-Score: -1.6 Z-Score: 0.9 Left Proximal Femur: Neck BMD: 0.666 g/cm2 T-Score: -1.6 Z-Score: 0.6 Total BMD: 0.866 g/cm2 T-Score: -0.6 Z-Score: 1.3 Compared with standards for the young adult, lowest measured bone densityplaces the patient in the W.H.O. osteopenic range. FRAX 10 year probability of major osteoporotic fracture: 13% FRAX 10 year probability of hip fracture: 3% IMPRESSION: IMPRESSION: Osteopenia. The NOF guidelines recommend that FDA approved medical therapies beconsidered in postmenopausal women and men age >50 years with a: i. Hip or vertebral (clinical or morphometric) fracture ii. T score of < -2.5 at the spine or hip iii. 10 year fracture probability by FRAX of >3% for hip fracture, or >20%for major osteoporotic fracture PLEASE NOTE: W.H.O. classification is based on lowest measured density at the spine,femoral neck, or total hip.This classification has prognostic significance when applied to postmenopausal women and older men. 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
== END 2024-05-02 10:38 | disposition home or self-care (01) ==
LOC: HO.MAMMO 10:37
PROVIDERS: PCP Internal Medicine; Visit Provider Internal Medicine
DX: Z12.31 Encounter for screening mammogram for malignant neoplasm of breast (principal)
CPT/HCPCS: 77063; 77067

== ENCOUNTER → 2024-05-02 11:00 | Outpatient (BNV) | payer MEDICARE, SELFPAY | PROVIDERS: PCP Internal Medicine; Visit Provider Internal Medicine | DX: Z12.31 Encounter for screening mammogram for malignant neoplasm of breast (principal) | CPT/HCPCS: 77063; 77067 ==